=== PATIENT | female | born 1995 | race Caucasian/White ===

== ENCOUNTER 2017-03-15 15:39 | Inpatient (IN) | payer OTHER ==
[2017-03-15] MEDS ORDERED: RINGERS SOLUTION,LACTATED 1,000 ML IV ONE (15:40)
[2017-03-15] MEDS ORDERED: DEXTROSE 5%-LACTATED RINGERS 1,000 ML IV PRN (15:40)
[2017-03-15] MEDS ORDERED: MISOPROSTOL 100 MCG TABLET VG PRN (15:40)
[2017-03-15] MEDS ORDERED: LIDOCAINE HCL 50 ML VIAL PERI PRN (15:40)
[2017-03-15] MEDS ORDERED: ONDANSETRON HCL/PF 2 MG/ML VIAL IV PRN (15:40)
[2017-03-15] MEDS ORDERED: OXYTOCIN/DEXTROSE 5%-WATER 30 UNITS/500 ML BAG IV ONE (15:40)
[2017-03-15 15:56] LABS: Random Urine Total Protein 18.7 mg/dL (0-12)
[2017-03-15 16:06] LABS: Hematocrit 39.1 % (37.0-47.0); Mean Cell Volume 87.7 fl (78-100); Mean Corpuscular Hemoglobin 29.1 pg (27-31); Mean Corpuscular Hgb Conc 33.2 g/dl (32-36); Platelet Count 194 K/mm3 (150-450); Red Blood Count 4.46 M/mm3 (4.2-5.4); Red Cell Distribution Width 12.5 % (11.5-14.0); White Blood Count 8.2 K/mm3 (4.0-10.5)
[2017-03-15 16:09] LABS: Total Cells Counted 100
[2017-03-15 16:13] LABS: Albumin * 2.8 gm/dl (3.4-5.0); Anion Gap 15.4 mmol/L (6.8-13.8); BUN/Creatinine Ratio 12.7 (9.0-21.6); Bilirubin, Total 0.2 mg/dL (0.0-1.1); Ca. Corrected For Albumin 9.3 mg/dL (8.4-10.2); Calcium * 8.7 mg/dL (7.9-10.9); Carbon Dioxide 23.1 mmol/L (24-32.6); Potassium 4.5 mmol/L (3.4-4.6); Total Protein 6.9 gm/dL (6.2-8.2)
[2017-03-15] MEDS: CLINDAMYCIN PHOSPHATE 900 MG in DEXTROSE 5 % IN WATER 100 ML IV SCH ×2 (16:46)
[2017-03-15 16:49] LABS: Cocaine Ur Negative (NEGATIVE); Urine Barbiturate Negative (NEGATIVE); Urine Benzodiazepines Negative (NEGATIVE); Urine Opiates Negative (NEGATIVE); Urine PCP Negative (NEGATIVE); Urine THC Negative (NEGATIVE)
[2017-03-15 17:25] LABS: Atypical (Reactive) Lymph 1 % (0-2); Band 2 % (0-2.0); Basophil 1 % (0-1); Eosinophil 2 % (0-3); Immature Granulocyte 1 (0-1); Lymphocyte 22 % (20-51); Monocyte 4 % (0-9); Neutrophil 67 % (42-75); Neutrophil # 5.5 K/mm3 (1.3-6.0)
[2017-03-15 17:29] LABS: Giant Platelets 1+; Platelet Estimate Normal (NORMAL); RBC Morphology Normal (NORMAL)
[2017-03-16] MEDS: CLINDAMYCIN PHOSPHATE 900 MG in DEXTROSE 5 % IN WATER 100 ML IV SCH ×2 (00:54)
[2017-03-16] MEDS ORDERED: NALOXONE HCL 1 MG/1 ML SYRG IV PRN (01:48)
[2017-03-16] MEDS ORDERED: BUPIVACAINE HCL/0.9 % NACL/PF 250 ML EP PRN (01:48)
[2017-03-16] MEDS ORDERED: ONDANSETRON HCL/PF 2 MG/ML VIAL IV PRN ×2 (01:48→03:04)
[2017-03-16] MEDS ORDERED: fentaNYL CITRATE/PF 50 MCG/ML AMPUL IT SCH (02:00)
--- NOTE | 2017-03-16 02:56 | OR ---
Operative Report - Dictated Report Narrative: Spontaneous vaginal delivery of viable female at 0215 on 03/16/2017 with Apgars 9 and 9, weighing 3225 g in AIDE position. Cord clamping delayed approximately 1 minute Placenta delivered complete, intact, with three vessel cord Estimated blood loss: less than 50 ml Lacerations: Bilateral periurethral abrasions with no repair
[2017-03-16] MEDS ORDERED: BISACODYL 10 MG SUPP.RECT RC PRN (03:04)
[2017-03-16] MEDS ORDERED: GLYCERIN/WITCH HAZEL LEAF 40 APPL BOX TP PRN (03:04)
[2017-03-16] MEDS ORDERED: HYDROCORTISONE 30 APPL TUBE TP PRN (03:04)
[2017-03-16] MEDS ORDERED: BENZOCAINE/MENTHOL 81 SPRAY CAN TP PRN (03:04)
[2017-03-16] MEDS ORDERED: SENNOSIDES 8.6 MG TABLET PO PRN (03:04)
[2017-03-16] MEDS ORDERED: OXYTOCIN/DEXTROSE 5%-WATER 30 UNITS/500 ML BAG IV ONE (03:04)
[2017-03-16] MEDS ORDERED: oxyCODONE HCL/ACETAMINOPHEN 1 TAB TABLET PO PRN (03:04)
[2017-03-16] MEDS ORDERED: CALCIUM GLUCONATE 4.65 MEQ/10 ML VIAL IV PRN (03:11)
[2017-03-16] MEDS ORDERED: MAGNESIUM SULFATE IN WATER 50 ML, MAGNESIUM SULFATE IN WATER 50 ML IV ONE ×2 (03:11)
[2017-03-16] MEDS ORDERED: LABETALOL HCL 5 MG/ML VIAL IV ONE (03:13)
--- NOTE | 2017-03-16 03:26 | PN ---
Progess Note - Interim Narrative: 03/16/17 03:22 Patient over the past hour after delivery has had elevated blood pressures in the severe range (167/97,163/101,166/107,169/113,158/101) and increased hyperreflexia. She has not had CHOUDHURY, epigastric pain, or visual disturbances. Will continue seizure precautions, give labetalol 20mg IV x 1, and start on magnesium sulfate IV for next 24 hours.
[2017-03-16] MEDS: DEXTROSE 5%-LACTATED RINGERS 1,000 ML IV PRN ×4 (03:52→22:18)
[2017-03-16] MEDS: MAGNESIUM SULFATE IN WATER 1,000 ML IV SCH ×2 (04:31→23:56)
[2017-03-16] MEDS: IBUPROFEN 800 MG TABLET PO PRN ×2 (07:28→23:03)
[2017-03-16] MEDS: oxyCODONE HCL/ACETAMINOPHEN 1 TAB TABLET PO PRN ×2 (07:28→19:02)
[2017-03-16] MEDS: DOCUSATE SODIUM 100 MG CAPSULE PO SCH ×2 (09:20→23:04)
[2017-03-17] MEDS: DEXTROSE 5%-LACTATED RINGERS 1,000 ML IV PRN (06:25)
--- NOTE | 2017-03-17 09:54 | PN ---
Subjective - Date and Time Seen Date: 03/17/17 Time: 09:52 Objective - Vitals Vitals: Last Vital Signs Temp 36.3 C L 03/17/17 05:47 Pulse 80 03/17/17 06:45 Resp 16 03/17/17 06:45 BP 140/98 03/17/17 06:45 Pulse Ox 100 03/17/17 06:45 Patient denies complaints. No headache, visual changes, or epigastric pain. Tolerating magnesium sulfate well. Blood pressures in mild to moderate range. Patient diuresing well. Lochia wnl Abdomen - soft, nontender Uterus - firm, at umbilicus - 1 No calf tenderness DTR-3/4, no clonus Impression: day #1 - s/p spontaneous vaginal delivery. Preeclampsia- resolving. Plan: We will discontinue magnesium sulfate, advanced diet and activity, and change I/O monitoring to every 6 hours. Continue routine care Cauti Physician Documentation - Urinary Catheter Management Urethral (Cain) Date of Insertion: 03/16/17 Time of Insertion: 04:48
[2017-03-17] MEDS: DOCUSATE SODIUM 100 MG CAPSULE PO SCH (12:12)
[2017-03-17] MEDS: IBUPROFEN 800 MG TABLET PO PRN (22:48)
[2017-03-18] MEDS: DOCUSATE SODIUM 100 MG CAPSULE PO SCH ×2 (05:51→08:34)
[2017-03-18] MEDS: IBUPROFEN 800 MG TABLET PO PRN (08:12)
[2017-03-18] MEDS ORDERED: LABETALOL HCL 100 MG TABLET PO SCH (09:00)
[2017-03-18 12:37] VITALS: BP 138/87
--- NOTE | 2017-03-18 13:24 | PN ---
Subjective - Date and Time Seen Date: 03/18/17 Time: 13:22 Objective - Vitals Vitals: Last Vital Signs Temp 36.9 C 03/18/17 12:36 Pulse 77 03/18/17 12:36 Resp 16 03/18/17 12:36 BP 138/87 03/18/17 12:36 Pulse Ox 96 03/18/17 12:36 Patient denies complaints. Denies headaches, visual changes, or epigastric pain Lochia wnl Abdomen - soft, nontender Uterus - firm, at umbilicus - 2 No calf tenderness DTR-2-3/4 Impression: day #2 - s/p spontaneous vaginal delivery. Preeclampsia- resolving Plan: Routine discharge instructions with the addition of preeclampsia precautions. Follow-up in the office on Wednesday for blood pressure check. Continue with labetalol 100 mg by mouth twice a day until seen in the office to reassess. Cauti Physician Documentation - Urinary Catheter Management Urethral (Cain) Date of Insertion: 03/16/17 Time of Insertion: 04:48 Date of Removal: 03/17/17 Time of Removal: 11:30
== END 2017-03-18 15:20 | disposition home or self-care (01) | DRG 775 ==
LOC: OB 15:39
PROVIDERS: ADMIT Obstetrics & Gynecology; ATTEND Obstetrics & Gynecology
PROC: 10E0XZZ Delivery of Products of Conception, External Approach (ICD-10-PCS; principal; 2017-03-16)
PROC: 3E033VJ Introduction of Other Hormone into Peripheral Vein, Percutaneous Approach (ICD-10-PCS; 2017-03-16)
PROC: 4A1HXCZ Monitoring of Products of Conception, Cardiac Rate, External Approach (ICD-10-PCS; 2017-03-16)
DX: O14.14 Severe pre-eclampsia complicating childbirth (principal); O99.824 Streptococcus B carrier state complicating childbirth; O99.324 Drug use complicating childbirth; F12.90 Cannabis use, unspecified, uncomplicated; Z3A.38 38 weeks gestation of pregnancy; Z37.0 Single live birth